=== PATIENT | female | born 1985 | race African-American/Black ===

== ENCOUNTER 2017-02-18 22:19 | Emergency (ER) | payer SELFPAY ==
[~2017-02-18] VITALS: Ht 165.1 cm; Wt 90.7 kg
[2017-02-18 22:20] VITALS: BP 132/90
--- NOTE | 2017-02-18 22:47 | PHYS DOC ---
Past Medical History Past Medical History: No Pertinent History Past Surgical History: Other Additional Past Surgical Histo: LEFT ANKLE-HARDWARE Alcohol Use: None Drug Use: None Adult General Chief Complaint Chief Complaint: SORE THROAT HPI HPI Patient is a 31 year old female presents to the emergency department with a 2 day history of a sore throat. She states that it hurts so bad that she tried Cepacol throat spray which seems to avoid prolonged and irritated the throat more. She states that she is having difficulty swallowing in which she is on the same cup of water that she started with this morning. She states that she has difficulty swallowing although is able to maintain her own saliva. She is able to talk in full sentences. He denies fever, chills or nausea vomiting. Review of Systems Review of Systems Constitutional: Denies fever or chills [] Eyes: Denies change in visual acuity, redness, or eye pain [] HENT: Denies nasal congestion C/o sore throat [] Respiratory: Denies cough or shortness of breath [] Cardiovascular: No additional information not addressed in HPI [] GI: Denies abdominal pain, nausea, vomiting, bloody stools or diarrhea [] : Denies dysuria or hematuria [] Musculoskeletal: Denies back pain or joint pain [] Integument: Denies rash or skin lesions [] Neurologic: Denies headache, focal weakness or sensory changes [] Allergies Allergies Allergies Coded Allergies Type Severity Reaction Last Updated Verified No Known Drug Allergies 02/18/17 No Physical Exam Physical Exam Constitutional: Well developed, well nourished, no acute distress, non-toxic appearance. [] HENT: Normocephalic, atraumatic, bilateral external ears normal, oropharynx moist, no oral exudates, nose normal. Bilateral TM normal. Right tonsil appears to be enlarged. No uvula deviation noted. Patient with right anterior cervical adenopathy noted. Eyes: PERRLA, EOMI, conjunctiva normal, no discharge. [] Neck: Normal range of motion, no tenderness, supple, no stridor. [] Cardiovascular:Heart rate regular rhythm, no murmur [] Lungs & Thorax: Bilateral breath sounds clear to auscultation [] Skin: Warm, dry, no erythema, no rash. [] Back: No tenderness Extremities: No tenderness, no cyanosis, no clubbing, ROM intact, no edema. [] Neurologic: Alert and oriented X 3, normal motor function, normal sensory function, no focal deficits noted. [] Psychologic: Affect normal, judgement normal, mood normal. [] Current Patient Data Vital Signs Vital Signs Date Time Temp Pulse Resp B/P Pulse Ox O2 Delivery O2 Flow Rate FiO2 02/18/17 22:20 97.7 101 18 98 Room Air 97.7 EKG EKG [] Radiology/Procedures Radiology/Procedures [] Course & Med Decision Making Course & Med Decision Making Pertinent Labs and Imaging studies reviewed. (See chart for details) She was a rapid strep that was positive. Patient will be provided with amoxicillin to take at home for the next 10 days. Recommended Tylenol or ibuprofen for fever chills generalized body aches and discomfort. Also recommended plenty of fluids. Patient will be discharged home in stable condition signs and symptoms to return back to emergency department as been provided. Patient will be discharge home in stable condition, patient agrees with discharge instructions treatment regimens and follow-up recommendations. [] Dragon Disclaimer Dragon Disclaimer This electronic medical record was generated, in whole or in part, using a voice recognition dictation system. Departure Departure Impression: Primary Impression: Strep sore throat Disposition: HOME, SELF-CARE Condition: STABLE Patient Instructions: Strep Throat, [id number] Additional Instructions: Strep result was positive. Your being treated for strep throat. Medication as prescribed. Tylenol or ibuprofen for fever chills generalized body aches and discomfort. Cough drops and throat lozenges may help soothe the throat. As well as warm salt water gargles. Change your toothbrush within the next 24 hours. Follow-up to primary care physician next 5-7 days. Return back to emergency prior signs symptoms of become worse. Scripts Amoxicillin 500 Mg Capsule1 Cap PO BID #20 CAP Prov:TASHA ARMANDO TRAP PULLER 02/18/17 TASHA ARMANDO TRAP PULLER February 18, 2017 22:47
[2017-02-18] MEDS ORDERED: AMOX500C PO (22:55)
[2017-02-19 07:15] LABS: NEGATIVE OBC STREP NEG; POSITIVE OBC STREP POS
== END 2017-02-18 23:00 | disposition home or self-care (01) ==
LOC: ER 22:19
DX: J02.0 Streptococcal pharyngitis (principal)
CPT/HCPCS: 87880; 99283

== ENCOUNTER 2017-03-25 23:06 | Emergency (ER) | payer SELFPAY ==
[~2017-03-25] VITALS: Ht 162.6 cm; Wt 90.7 kg
[~2017-03-25 23:06] MED LIST: AMOX500C PO
[2017-03-25] MEDS ORDERED: cefTRIAXone IM 250 MG VIAL IM ONE (23:45)
[2017-03-25] MEDS ORDERED: FLUCONAZOLE 100 MG TABLET. PO ONE (23:45)
[2017-03-25] MEDS ORDERED: AZITHROMYCIN 250 MG TABLET. PO ONE (23:45)
[2017-03-25] MEDS ORDERED: ONDA4TAB10 PO (23:49)
[2017-03-25] MEDS ORDERED: HYDR-971 PO (23:49)
--- NOTE | 2017-03-25 23:49 | PHYS DOC ---
Past Medical History Past Medical History: No Pertinent History Past Surgical History: Cholecystectomy Additional Past Surgical Histo: left ankle injury with hardware placement Alcohol Use: None Drug Use: Marijuana Adult General Chief Complaint Chief Complaint: SEXUALLY TRANSMITTED DISEASE HPI HPI Patient is a 32 year old female presenting to ED for evaluation of vaginal discharge and low mid abdominal pain. She is concerned her partner may have given her an STD. No fevers, chills, n,v, dysuria, vaginal bleeding. She is in nad with normal VS. Review of Systems Review of Systems Constitutional: Denies fever or chills [] Cardiovascular: No additional information not addressed in HPI [] GI: + abdominal pain. No nausea, vomiting, bloody stools or diarrhea [] : Denies dysuria or hematuria [] Musculoskeletal: Denies back pain or joint pain [] Current Medications Current Medications Current Medications Medications (Trade) Dose Ordered Sig/Zainab Start Time Stop Time Status Last Admin Dose Admin Azithromycin (Zithromax) 1,000 mg 1X ONCE 03/25/17 23:45 03/25/17 23:46 Ceftriaxone Sodium (Rocephin Im) 250 mg 1X ONCE 03/25/17 23:45 03/25/17 23:46 Fluconazole (Diflucan) 150 mg 1X ONCE 03/25/17 23:45 03/25/17 23:46 Allergies Allergies Allergies Coded Allergies Type Severity Reaction Last Updated Verified No Known Drug Allergies 02/18/17 No Physical Exam Physical Exam Constitutional: Well developed, well nourished, no acute distress, non-toxic appearance. [] Cardiovascular:Heart rate regular rhythm, no murmur [] Lungs & Thorax: Bilateral breath sounds clear to auscultation [] Abdomen: Bowel sounds normal, soft, mild suprapubic tenderness, no rebound or guarding, no masses, no pulsatile masses. [] Skin: Warm, dry, no erythema, no rash. [] Back: No tenderness, no CVA tenderness. [] Current Patient Data Vital Signs Vital Signs Date Time Temp Pulse Resp B/P (MAP) Pulse Ox O2 Delivery O2 Flow Rate FiO2 03/25/17 23:34 98.4 92 16 134/88 (103) 99 Room Air 98.4 EKG EKG [] Radiology/Procedures Radiology/Procedures [] Course & Med Decision Making Course & Med Decision Making Patient will be treated for STDs. Go home with nsaids and norco for breakthrough pain. Told to follow with [facility] in next 72 hours. Patient aware and agreeable with plan. Dragon Disclaimer Dragon Disclaimer This electronic medical record was generated, in whole or in part, using a voice recognition dictation system. Departure Departure Impression: Primary Impression: Abdominal pain Additional Impression: STD exposure Disposition: HOME, SELF-CARE Condition: GOOD Referrals: NO PCP (PCP) ERASTO HERZOG MD Patient Instructions: Sexuality and Disability Additional Instructions: Take 400mg of ibuprofen every 6 hours and the norco for breakthrough pain. Follow with [facility] later this week. Thank you! Scripts Ondansetron (ZOFRAN ODT) 4 Mg Tab.rapdis 4 MG PO BID Y for NAUSEA/VOMITING, #10 TAB Prov: MATA GREER DO 03/25/17 Hydrocodone/Apap 5-325 (NORCO 5-325 TABLET) 1 Each Tablet 1 TAB PO PRN Q6HRS Y for PAIN, #14 TAB 0 Refills Prov: MATA GREER DO 03/25/17 Problem Qualifiers Primary Impression: Abdominal pain Abdominal location: lower abdomen, unspecified Qualified Codes: R10.30 - Lower abdominal pain, unspecified MATA GREER DO Mar 25, 2017 23:49
[2017-03-26] MEDS ORDERED: METR500T PO (00:16)
[2017-03-26 00:38] VITALS: BP 135/57
[2017-03-26 00:45] LABS: BILIRUBIN,URINE NEGATIVE (NEG); GLUCOSE,URINE NEGATIVE (NEG); NITRITE,URINE NEGATIVE (NEG); PH,URINE 5.5; PROTEIN,URINE 30 mg/dL (NEG-TRACE); UROBILINOGEN,URINE 0.2 mg/dL (0.2 mg/dL)
[2017-03-26 00:51] LABS: BACTERIA,URINE MANY /HPF (0-FEW); RBC,URINE 0 /HPF (0-2); SQUAMOUS EPITHELIAL CELL,UR MANY /LPF; WBC,URINE 20-40 /HPF (0-4)
== END 2017-03-26 00:39 | disposition home or self-care (01) ==
LOC: ER 23:06
DX: R10.30 Lower abdominal pain, unspecified (principal); Z20.2 Contact with and (suspected) exposure to infections with a predominantly sexual mode of transmission; N89.8 Other specified noninflammatory disorders of vagina; F12.10 Cannabis abuse, uncomplicated; Z90.49 Acquired absence of other specified parts of digestive tract
CPT/HCPCS: 81001; 81025; 87086; 87491; 87591; 96372; 99284; J0696; Q0111; Q0144

== ENCOUNTER 2017-04-24 20:05 | Emergency (ER) | payer OTHER ==
[~2017-04-24] VITALS: Ht 165.1 cm; Wt 93.0 kg
[~2017-04-24 20:05] MED LIST changes: +HYDR-971 PO; +METR500T PO; +ONDA4TAB10 PO
[2017-04-24 20:20] VITALS: BP 141/90
[2017-04-24] MEDS ORDERED: NAPR500T3 PO (21:53)
--- NOTE | 2017-04-24 21:53 | PHYS DOC ---
Past Medical History Past Medical History: No Pertinent History Past Surgical History: Cholecystectomy Additional Past Surgical Histo: left ankle injury with hardware placement Alcohol Use: None Drug Use: Marijuana Adult General Chief Complaint Chief Complaint: KNEE INJURY HPI HPI Patient is a 32 year old female who presents with mild left lateral knee pain that began 3 days ago when at work. Patient states she was in bending position trying to lift a box when she developed the knee pain coming up from bending position. Review of Systems Review of Systems Constitutional: Denies fever or chills [] Eyes: Denies change in visual acuity, redness, or eye pain [] Musculoskeletal: Left knee pain Integument: Denies rash or skin lesions [] Neurologic: Denies headache, focal weakness or sensory changes [] Endocrine: Denies polyuria or polydipsia [] Allergies Allergies Allergies Coded Allergies Type Severity Reaction Last Updated Verified No Known Drug Allergies 02/18/17 No Physical Exam Physical Exam Constitutional: Well developed, well nourished, no acute distress, non-toxic appearance. [] Skin: Warm, dry, no erythema, no rash. [] Back: No tenderness, no CVA tenderness. [] Extremities: Left knee with no obvious edema and obvious ecchymosis. Tenderness on palpation of the left lateral knee. Negative Johnson sign and negative Edin's sign negative anterior-posterior drawer sign to the left knee. +2 left pedal pulse. Cap refill less than 2 seconds the left lower extremity. Sensation intact to the left lower extremity. Neurologic: Alert and oriented X 3, normal motor function, normal sensory function, no focal deficits noted. [] Psychologic: Affect normal, judgement normal, mood normal. [] Current Patient Data Vital Signs Vital Signs Date Time Temp Pulse Resp B/P (MAP) Pulse Ox O2 Delivery O2 Flow Rate FiO2 04/24/17 20:20 98.6 74 16 98 Room Air 98.6 EKG EKG [] Radiology/Procedures Radiology/Procedures [] Course & Med Decision Making Course & Med Decision Making Pertinent Labs and Imaging studies reviewed. (See chart for details) Patient is in the ED with left lateral knee pain that began after she tried lifting a heavy box from bending position. Left knee x-rays interpreted by Dr. Aly are negative for any acute findings. Patient has left knee sprain. Immobilizer applied to the left knee by the ED RN, neurovascular exam done by me is normal, cap refill less than 2 seconds. Ice elevation encouraged. Follow- up with Ortho in one week if pain continues. Naproxen given to patient. Tone Disclaimer Tone Disclaimer This electronic medical record was generated, in whole or in part, using a voice recognition dictation system. Departure Departure Impression: Primary Impression: Left knee sprain Disposition: HOME, SELF-CARE Condition: STABLE Referrals: NO PCP (PCP) KARTIK ANAND II, MD Follow-up in one week if pain continues Patient Instructions: Knee Sprain, [id number] Additional Instructions: You were seen for left knee sprain. Ice and elevate the extremity. Wear the immobilizer provided as needed and tolerated. Follow-up with your own doctor or the provided orthopedic doctor in 1-2 weeks if pain continues. Take anti- inflammatories as needed for pain. They do help with the swelling as well. Scripts Naproxen (NAPROXEN) 500 Mg Tablet 1 TAB PO BID, #60 TAB 1 Refill Prov: MELVIN BYERS APRN 04/24/17 Problem Qualifiers Primary Impression: Left knee sprain Encounter type: initial encounter Involved ligament of knee: unspecified ligament Qualified Codes: S83.92XA - Sprain of unspecified site of left knee, initial encounter MELVIN BYERS APRN Apr 24, 2017 21:53
--- NOTE | 2017-04-25 07:55 | RAD ---
Left knee with patella, 4 views, 04/24/2017: History: Pain No fracture or dislocation is identified. No significant arthritic change is seen. There is a suggestion of a small joint effusion. IMPRESSION: 1. No acute bony abnormality is detected. 2. Possible small knee joint effusion.
== END 2017-04-24 22:25 | disposition home or self-care (01) ==
LOC: ER 20:05
DX: S83.92XA Sprain of unspecified site of left knee, initial encounter (principal); F12.10 Cannabis abuse, uncomplicated; Z90.49 Acquired absence of other specified parts of digestive tract; X50.0XXA Overexertion from strenuous movement or load, initial encounter; Y93.89 Activity, other specified; Y92.69 Other specified industrial and construction area as the place of occurrence of the external cause; Y99.8 Other external cause status
CPT/HCPCS: 29505; 73564; 99284-25

== ENCOUNTER 2017-08-12 13:51 | Emergency (ER) | payer SELFPAY ==
[~2017-08-12] VITALS: Ht 165.1 cm; Wt 89.8 kg
[~2017-08-12 13:51] MED LIST changes: +NAPR500T4 PO
[2017-08-12 14:15] VITALS: BP 156/101
--- NOTE | 2017-08-12 14:49 | RAD ---
Left hand, 3 views, 08/12/2017: History: Hand injury. No fracture or dislocation is identified. The soft tissues are unremarkable. IMPRESSION: No acute left hand abnormality is detected.
--- NOTE | 2017-08-12 14:59 | PHYS DOC ---
Past Medical History Past Medical History: No Pertinent History Past Surgical History: Cholecystectomy Additional Past Surgical Histo: left ankle injury with hardware placement Alcohol Use: Occasionally Drug Use: Marijuana Adult General Chief Complaint Chief Complaint: HAND PROBLEM HPI HPI Patient is a 32 year old female presents to the emergency department stating that she injured her left hand while trying to plan about the house. She states that she was pulled over rope when she fell. She states that she is having pain along the second finger and metacarpal area. Patient states she is right-hand dominant. She has not taken anything for pain and discomfort. There does not appear to be any bruising noted however there might be slight swelling noted. Review of Systems Review of Systems Constitutional: Denies fever or chills [] Eyes: Denies change in visual acuity, redness, or eye pain [] HENT: Denies nasal congestion or sore throat [] Respiratory: Denies cough or shortness of breath [] Cardiovascular: No additional information not addressed in HPI [] GI: Denies abdominal pain, nausea, vomiting, bloody stools or diarrhea [] : Denies dysuria or hematuria [] Musculoskeletal: Denies back pain. C/o left hand pain Integument: Denies rash or skin lesions [] Neurologic: Denies headache, focal weakness or sensory changes [] Endocrine: Denies polyuria or polydipsia [] Current Medications Current Medications Current Medications Medications (Trade) Dose Ordered Sig/[facility] Start Time Stop Time Status Last Admin Dose Admin Ibuprofen (Motrin) 800 mg 1X ONCE 08/12/17 15:30 08/12/17 15:31 Allergies Allergies Allergies Coded Allergies Type Severity Reaction Last Updated Verified No Known Drug Allergies 02/18/17 No Physical Exam Physical Exam Constitutional: Well developed, well nourished, no acute distress, non-toxic appearance. [] HENT: Normocephalic, atraumatic, bilateral external ears normal, oropharynx moist, no oral exudates, nose normal. [] Eyes: PERRLA, EOMI, conjunctiva normal, no discharge. [] Neck: Normal range of motion, no tenderness, supple, no stridor. [] Cardiovascular:Heart rate regular rhythm, no murmur [] Lungs & Thorax: Bilateral breath sounds clear to auscultation [] Skin: Warm, dry, no erythema, no rash. [] Extremities: Left second finger and metacarpal tenderness, no cyanosis, no clubbing, ROM intact, no edema. No bruising or discoloration noted, Patient with slight swelling noted. Neurologic: Alert and oriented X 3, normal motor function, normal sensory function, no focal deficits noted. [] Psychologic: Affect normal, judgement normal, mood normal. [] Current Patient Data Vital Signs Vital Signs Date Time Temp Pulse Resp B/P (MAP) Pulse Ox O2 Delivery O2 Flow Rate FiO2 08/12/17 14:15 98.5 78 22 97 Room Air 98.5 EKG EKG [] Radiology/Procedures Radiology/Procedures [facility] [address] [place] [address] IMAGING REPORT Signed PATIENT: ALONDRA SIERRA ACCOUNT: [id number] : 1985 LOCATION: ER AGE: 32 SEX: F EXAM STATUS: REG ER ORD. PHYSICIAN: TASHA ARMANDO APRN REASON: hadn pain left PROCEDURE: HAND LEFT 3V Left hand, 3 views, 08/12/2017: History: Hand injury. No fracture or dislocation is identified. The soft tissues are unremarkable. IMPRESSION: No acute left hand abnormality is detected. DICTATED and SIGNED BY: ALLYN ORDONEZ MD DATE: 08/12/17 1444 CC: TASHA ARMANDO APRN; NO PCP; NON,STAFF ~ [] Course & Med Decision Making Course & Med Decision Making Pertinent Labs and Imaging studies reviewed. (See chart for details) X-rays were negative for any bad bony abnormalities. Patient will be encouraged to use Tylenol or ibuprofen for pain and discomfort. Also recommended ice packs and elevation. Patient will be discharged home in stable condition with recommendations to follow-up with orthopedic in the next week if she continues to have pain and discomfort. Patient agrees with discharge instructions, treatment regimens and follow-up recommendations. [] Dragon Disclaimer Dragon Disclaimer This electronic medical record was generated, in whole or in part, using a voice recognition dictation system. Departure Departure Impression: Primary Impression: Hand pain, left Disposition: 01 HOME, SELF-CARE Condition: STABLE Referrals: NO PCP (PCP) Patient Instructions: Hand Contusion, [id number] Additional Instructions: Activity as tolerated Tylenol or Ibuprofen for pain and discomfort Ice packs on 20 minutes off 20 minutes several times a day Elevation as much as possible Followup with orthopedic in 1 week Return to emergency department as needed for signs and symptoms that become worse. TASHA ARMANDO APRN Aug 12, 2017 14:59
[2017-08-12] MEDS ORDERED: IBUPROFEN 800 MG TABLET. PO ONE (15:30)
== END 2017-08-12 15:09 | disposition home or self-care (01) ==
LOC: ER 13:51
DX: M79.642 Pain in left hand (principal); M79.645 Pain in left finger(s); F12.10 Cannabis abuse, uncomplicated; W01.0XXA Fall on same level from slipping, tripping and stumbling without subsequent striking against object, initial encounter; Y93.89 Activity, other specified; Y99.8 Other external cause status; Y92.89 Other specified places as the place of occurrence of the external cause
CPT/HCPCS: 73130; 99284

== ENCOUNTER 2017-09-11 18:38 | Emergency (ER) | payer SELFPAY ==
[~2017-09-11] VITALS: Ht 165.1 cm; Wt 107.5 kg
[2017-09-11] MEDS ORDERED: DICYCLOMINE HCL 10 MG CAPSULE PO STA (19:24)
[2017-09-11] MEDS ORDERED: IV NORMAL SALINE 1000ML BAG 1,000 ML IV SCH (19:24)
[2017-09-11 19:28] LABS: BILIRUBIN,URINE NEGATIVE (NEG); GLUCOSE,URINE NEGATIVE (NEG); NITRITE,URINE NEGATIVE (NEG); PH,URINE 6.5; PROTEIN,URINE NEGATIVE (NEG-TRACE); UROBILINOGEN,URINE 0.2 mg/dL (0.2 mg/dL)
[2017-09-11] MEDS ORDERED: ONDANSETRON PF 4 MG/2 ML VIAL. IV ONE (19:30)
[2017-09-11] MEDS ORDERED: FAMOTIDINE 20 MG/2 ML VIAL IVP ONE (19:30)
[2017-09-11 19:33] LABS: BACTERIA,URINE MODERATE /HPF (0-FEW); RBC,URINE OCC /HPF (0-2); SQUAMOUS EPITHELIAL CELL,UR MANY /LPF; WBC,URINE 20-40 /HPF (0-4)
[2017-09-11 19:41] LABS: BASO # 0.1 x10^3/uL (0.0-0.2); BASO % 1 % (0-3); EOS % 4 % (0-3); HEMATOCRIT 35.9 % (36.0-47.0); HEMOGLOBIN 11.7 g/dL (12.0-15.5); LYMPH # 3.5 x10^3/uL (1.0-4.8); LYMPH % 33 % (24-48); MEAN CORPUSCULAR HEMOGLOBIN 27 pg (25-35); MEAN CORPUSCULAR HGB CONC 33 g/dL (31-37); MEAN CORPUSCULAR VOLUME 84 fL (79-100); MONO % 8 % (0-9); NEUT % 54 % (31-73); PLATELET COUNT 199 x10^3/uL (140-400); RED BLOOD COUNT 4.28 x10^6/uL (3.50-5.40); RED CELL DISTRIBUTION WIDTH 16.6 % (11.5-14.5); WHITE BLOOD COUNT 10.8 x10^3/uL (4.0-11.0)
[2017-09-11] MEDS ORDERED: NITROFURANTOIN MONOHYD/M-CRYST 100 MG CAPSULE. PO ONE (19:45)
--- NOTE | 2017-09-11 19:56 | PHYS DOC ---
Past Medical History Past Medical History: No Pertinent History Past Surgical History: Cholecystectomy Additional Past Surgical Histo: left ankle injury with hardware placement Alcohol Use: Occasionally Additional Information: pt denies drinking at this time. Drug Use: Marijuana Social History Narrative: pt denies smoking marijuana at this time. Adult General Chief Complaint Chief Complaint: ABDOMINAL PAIN HPI HPI Patient is a 32 year old female who presents with complaint of lower abdominal and back pain. Patient states her symptoms have been present over the past week. Patient states that she has had episodes of loose stool associated with symptoms off and on but states that she has had abdominal cramping not associated with bowel movements. Patient states cramping is remained in her lower abdomen and states that her pain has gotten up to 8 out of 10. Patient denies any fevers but has had associated nausea. Patient denies any history of intestinal problems and denies any recent sick contacts. Patient has had no associated fever with her symptoms. Patient has not taken any medications to help with her symptoms at this time. Review of Systems Review of Systems Constitutional: Denies fever or chills [] Eyes: Denies change in visual acuity, redness, or eye pain [] HENT: Denies nasal congestion or sore throat [] Respiratory: Denies cough or shortness of breath [] Cardiovascular: Denies chest pain or edema[] GI: Abdominal pain, nausea, diarrhea[] : Denies dysuria or hematuria [] Musculoskeletal: Denies back pain or joint pain [] Integument: Denies rash or skin lesions [] Neurologic: Denies headache, focal weakness or sensory changes [] All other systems were reviewed and found to be within normal limits, except as documented in this note. Current Medications Current Medications Current Medications Medications (Trade) Dose Ordered Sig/Zainab Start Time Stop Time Status Last Admin Dose Admin Dicyclomine HCl (Bentyl) 10 mg 1X STAT 09/11/17 19:24 09/11/17 19:28 DC 09/11/17 19:38 10 MG Famotidine (Pepcid Vial) 20 mg 1X ONCE 09/11/17 19:30 09/11/17 19:31 DC 09/11/17 19:38 20 MG Nitrofurantoin Macrocrystals (Macrobid) 100 mg 1X ONCE 09/11/17 19:45 09/11/17 19:47 DC 09/11/17 20:23 100 MG Ondansetron HCl (Zofran) 4 mg 1X ONCE 09/11/17 19:30 09/11/17 19:31 DC 09/11/17 19:38 4 MG Sodium Chloride 1,000 ml @ 1,000 mls/hr Q1H 09/11/17 19:24 09/11/17 20:23 DC 09/11/17 19:36 1,000 MLS/HR Allergies Allergies Allergies Coded Allergies Type Severity Reaction Last Updated Verified No Known Drug Allergies 02/18/17 No Physical Exam Physical Exam Constitutional: Alert, obese, afebrile, no acute distress. [] HENT: Normocephalic, atraumatic, bilateral external ears normal, oropharynx moist, no oral exudates, nose normal. [] Eyes: PERRLA, EOMI, conjunctiva normal, no discharge. [] Neck: Normal range of motion, no tenderness, supple, no stridor. [] Cardiovascular:Heart rate regular rhythm, no murmur [] Lungs & Thorax: Bilateral breath sounds clear to auscultation [] Abdomen: Bowel sounds normal, soft, mild suprapubic tenderness to palpation with no guarding or rebound tenderness, no masses, no pulsatile masses. [] Skin: Warm, dry, no erythema, no rash. [] Back: No tenderness, no CVA tenderness. [] Extremities: No tenderness, no cyanosis, no clubbing, ROM intact, no edema. [] Neurologic: Alert and oriented X 3, normal motor function, normal sensory function, no focal deficits noted. [] Current Patient Data Vital Signs Vital Signs Date Time Temp Pulse Resp B/P (MAP) Pulse Ox O2 Delivery O2 Flow Rate FiO2 09/11/17 20:35 75 16 121/80 (94) 98 09/11/17 19:00 97.8 Room Air 97.8 Lab Values Laboratory Tests Test 09/11/17 19:03 09/11/17 19:30 Urine Collection Type Unknown Urine Color Yellow Urine Clarity Cloudy Urine pH 6.5 Urine Specific [place] 1.025 Urine Protein Negative mg/dL (NEG-TRACE) Urine Glucose (UA) Negative mg/dL (NEG) Urine Ketones (Stick) Negative mg/dL (NEG) Urine Blood Negative (NEG) Urine Nitrite Negative (NEG) Urine Bilirubin Negative (NEG) Urine Urobilinogen Dipstick 0.2 mg/dL (0.2 mg/dL) Urine Leukocyte Esterase Large (NEG) Urine RBC Occ /HPF (0-2) Urine WBC 20-40 /HPF (0-4) Urine Squamous Epithelial Cells Many /LPF Urine Amorphous Sediment Present /HPF Urine Bacteria Moderate /HPF (0-FEW) Urine Mucus Mod /LPF POC Urine HCG, Qualitative Hcg negative (Negative) White Blood Count 10.8 x10^3/uL (4.0-11.0) Red Blood Count 4.28 x10^6/uL (3.50-5.40) Hemoglobin 11.7 g/dL (12.0-15.5) L Hematocrit 35.9 % (36.0-47.0) L Mean Corpuscular Volume 84 fL (79-100) Mean Corpuscular Hemoglobin 27 pg (25-35) Mean Corpuscular Hemoglobin Concent 33 g/dL (31-37) Red Cell Distribution Width 16.6 % (11.5-14.5) H Platelet Count 199 x10^3/uL (140-400) Neutrophils (%) (Auto) 54 % (31-73) Lymphocytes (%) (Auto) 33 % (24-48) Monocytes (%) (Auto) 8 % (0-9) Eosinophils (%) (Auto) 4 % (0-3) H Basophils (%) (Auto) 1 % (0-3) Neutrophils # (Auto) 5.8 x10^3uL (1.8-7.7) Lymphocytes # (Auto) 3.5 x10^3/uL (1.0-4.8) Monocytes # (Auto) 0.9 x10^3/uL (0.0-1.1) Eosinophils # (Auto) 0.4 x10^3/uL (0.0-0.7) Basophils # (Auto) 0.1 x10^3/uL (0.0-0.2) Sodium Level 144 mmol/L (136-145) Potassium Level 3.3 mmol/L (3.5-5.1) L Chloride Level 110 mmol/L (98-107) H Carbon Dioxide Level 25 mmol/L (21-32) Anion Gap 9 (6-14) Blood Urea Nitrogen 9 mg/dL (7-20) Creatinine 1.0 mg/dL (0.6-1.0) Estimated GFR (Cockcroft-Gault) 77.3 BUN/Creatinine Ratio 9 (6-20) Glucose Level 110 mg/dL (70-99) H Calcium Level 8.1 mg/dL (8.5-10.1) L Total Bilirubin 0.1 mg/dL (0.2-1.0) L Aspartate Amino Transferase (AST) 7 U/L (15-37) L Alanine Aminotransferase (ALT) 15 U/L (14-59) Alkaline Phosphatase 67 U/L (46-116) Total Protein 5.9 g/dL (6.4-8.2) L Albumin 3.0 g/dL (3.4-5.0) L Albumin/Globulin Ratio 1.0 (1.0-1.7) Lipase 154 U/L (73-393) Laboratory Tests 09/11/17 19:30 Laboratory Tests 09/11/17 19:30 EKG EKG Not performed[] Radiology/Procedures Radiology/Procedures 3 view acute acute abdominal series interpreted by me: No pulmonary infiltrates or effusions, nonobstructive bowel gas pattern, no free air under the diaphragm[ ] Course & Med Decision Making Course & Med Decision Making Pertinent Labs and Imaging studies reviewed. (See chart for details) Patient was given IV fluids, Bentyl, Zofran for symptoms. On reevaluation, patient states her symptoms have improved. The patient was found have evidence of urinary tract infection and started on Macrobid in the emergency department. Patient will continue on seven-day course of Macrobid for treatment. Advised follow-up in 5 days if symptoms are not improving and return to emergency department for any worsening symptoms. Patient voiced understanding and in agreement with treatment plan. Dragon Disclaimer Dragon Disclaimer This electronic medical record was generated, in whole or in part, using a voice recognition dictation system. Departure Departure Impression: Primary Impression: Urinary tract infection Additional Impression: Abdominal pain Disposition: 01 HOME, SELF-CARE Condition: IMPROVED Referrals: NO PCP (PCP) Patient Instructions: Abdominal Pain (Nonspecific), Urinary Tract Infection Additional Instructions: Follow-up to primary doctor in 5 days for reevaluation if symptoms are not improving. Return to emergency department for any worsening symptoms. Scripts Ondansetron (ZOFRAN ODT) 4 Mg Tab.rapdis 1 TAB SL Q8HRS Y for NAUSEA/VOMITING, #15 TAB Prov: FOLAND,MICKI J MD 09/11/17 Nitrofurantoin Monohyd/M-Cryst (MACROBID 100 MG CAPSULE) 100 Mg Capsule 1 CAP PO BID, #14 CAP Prov: MICKI SMITH MD 09/11/17 Dicyclomine Hcl (BENTYL) 10 Mg Capsule 1 CAP PO TID, #30 CAP 0 Refills Prov: MICKI SMITH MD 09/11/17 Problem Qualifiers Primary Impression: Urinary tract infection Urinary tract infection type: acute cystitis Hematuria presence: without hematuria Qualified Codes: N30.00 - Acute cystitis without hematuria Additional Impression: Abdominal pain Abdominal location: lower abdomen, unspecified Qualified Codes: R10.30 - Lower abdominal pain, unspecified MICKI SMITH MD Sep 11, 2017 19:56
[2017-09-11 20:04] LABS: CALCIUM 8.1 mg/dL (8.5-10.1); GFR 77.3; POTASSIUM 3.3 mmol/L (3.5-5.1)
[2017-09-11 20:10] LABS: TOTAL BILIRUBIN 0.1 mg/dL (0.2-1.0); TOTAL PROTEIN 5.9 g/dL (6.4-8.2)
[2017-09-11] MEDS ORDERED: DICY10CA53 PO (21:12)
[2017-09-11 21:14] VITALS: BP 120/79
[2017-09-11] MEDS ORDERED: ONDA4TAB10 SL (21:14)
[2017-09-11] MEDS ORDERED: NITR100C62 PO (21:14)
--- NOTE | 2017-09-12 07:59 | RAD ---
ACUTE ABDOMEN SERIES History:abdominal pain Comparison: None Findings:Single supine and upright views of the abdomen and single view of the chest are submitted. There is no infiltrate, pleural fluid, pneumothorax, free air. There is a nonobstructive bowel gas pattern. There has been cholecystectomy. There is some retained stool in the right colon. There are tubal occlusion devices bilaterally. Impression: 1.No acute abnormality is identified.
== END 2017-09-11 21:20 | disposition home or self-care (01) ==
LOC: ER 18:38
DX: N30.00 Acute cystitis without hematuria (principal); Z90.49 Acquired absence of other specified parts of digestive tract
CPT/HCPCS: 36415; 74022; 80053; 81001; 81025; 83690; 85025; 87086; 96361; 96374; 96375; 99285; J2405; J7030; S0028